=== PATIENT | female | born 1965 | race Caucasian/White ===

== ENCOUNTER 2021-02-23 15:57 | Inpatient (IN) | payer MEDICARE, MEDICAID ==
[~2021-02-23 15:57] MED LIST: NO HOME MEDICATION; RISP1TAB; RISP2TAB12; ZYPR10TA; ZYPR15TA PO; ZYPR15TA3; ZYPR5TAB2 PO
[2021-02-23 17:15] LABS: HEMATOCRIT 41.6 % (36.0-47.0); HEMOGLOBIN 13.6 g/dl (12.0-15.5); MEAN CORPUSCULAR HEMOGLOBIN 30.6 pg (27.0-33.0); MEAN CORPUSCULAR HGB CONC 32.7 g/dl (32.0-36.5); MEAN CORPUSCULAR VOLUME 93.5 fl (80.0-96.0); PLATELET COUNT, AUTOMATED 337 10^3/uL (150-450); RED BLOOD COUNT 4.45 10^6/uL (4.00-5.40)
[2021-02-23 17:27] LABS: AMPHETAMINES LEVEL URINE NEGATIVE (NEGATIVE); BARBITURATES URINE NEGATIVE (NEGATIVE); BENZODIAZEPINES URINE NEGATIVE (NEGATIVE); CANNABINOIDS URINE NEGATIVE (NEGATIVE); COCAINE METABOLITE URINE NEGATIVE (NEGATIVE); METHADONE URINE NEGATIVE (NEGATIVE); OPIATES URINE NEGATIVE (NEGATIVE); PHENCYCLIDINE URINE NEGATIVE (NEGATIVE)
[2021-02-23 17:38] LABS: ACETAMINOPHEN LEVEL < 2.0 UG/ML (10.0-30.0); ALT/SGPT 30 U/L (12-78); BILIRUBIN,DIRECT < 0.1 MG/DL (0.0-0.2); BILIRUBIN,TOTAL 0.2 MG/DL (0.2-1.0); BLOOD UREA NITROGEN 12 MG/DL (7-18); CALCIUM LEVEL 9.4 MG/DL (8.5-10.1); CARBON DIOXIDE LEVEL 26 MEQ/L (21-32); CHLORIDE LEVEL 107 MEQ/L (98-107); ETHYL ALCOHOL (ETHANOL) < 0.003 % (0.000-0.010); GLOMERULAR FILTRATION RATE > 60.0 (>51); GLUCOSE, FASTING 102 MG/DL (70-100); POTASSIUM SERUM 4.2 MEQ/L (3.5-5.1); SALICYLATE LEVEL 3.6 MG/DL (5.0-30.0); SODIUM LEVEL 138 MEQ/L (136-145); TOTAL PROTEIN 7.3 GM/DL (6.4-8.2)
[2021-02-23 19:43] LABS: RSV AMPLIFICATION NEGATIVE (NEGATIVE)
[2021-02-24] MEDS ORDERED: MAALOX 30 ML SUSP *UDC PO PRN (02:40)
[2021-02-24] MEDS ORDERED: ACETAMINOPHEN TAB 650MG DOSE (2X325MG) PO PRN (02:40)
--- NOTE | 2021-02-24 04:16 | MHIPNPDOC ---
[facility] Progress Note Progress Note DATE OF SERVICE: 02/24/21 Communicated with PSA patient is to be admitted. Police brought on 9.41, found psychotic, hx schizophrenia, last admission in 2012. Vital Signs Vital Signs Date Time Temp Pulse Resp B/P (MAP) Pulse Ox O2 Delivery O2 Flow Rate FiO2 02/23/21 17:23 97.9 85 20 155/76 (102) 98 Room Air Laboratory Data 24H Labs Laboratory Tests 2 02/23/21 16:10: Nucleated Red Blood Cells % (auto) 0.0, Anion Gap 5L, Glomerular Filtration Rate > 60.0, Calcium Level 9.4, Total Bilirubin 0.2, Direct Bilirubin < 0.1, As partate Amino Transf (AST/SGOT) 25, Alanine Aminotransferase (ALT/SGPT) 30, Alkaline Phosphatase 77, Total Protein 7.3, Albumin 4.0, Albumin/Globulin Ratio 1.2, Thyroid Stimulating Hormone (TSH) 1.180, Salicylates Level 3.6L, Urine Opiates Screen NEGATIVE, Urine Methadone Screen NEGATIVE, Acetaminophen Level < 2.0L, Urine Barbiturates Screen NEGATIVE, Urine Phencyclidine Screen NEGATIVE, Urine Amphetamines Screen NEGATIVE, Urine Benzodiazepines Screen NEGATIVE, Urine Cocaine Metabolite Screen NEGATIVE, Urine Cannabinoids Screen NEGATIVE, Ethyl Alcohol Level < 0.003 02/23/21 18:43: Coronavirus (COVID-19)(PCR) NEGATIVE, Influenza Type A (RT-PCR) NEGATIVE, Influenza Type B (RT-PCR) NEGATIVE, Respiratory Syncytial Virus (PCR) NEGATIVE CBC/BMP Laboratory Tests 02/23/21 16:10 Current Medications Current Medications Medications (Trade) Dose Ordered Sig/Kimani Route PRN Reason Start Time Stop Time Status Last Admin Dose Admin Acetaminophen (Tylenol Tab) 650 mg Q6HP PRN PO HEADACHE or MILD DISCOMFORT 02/24/21 02:40 Al Hydrox/Mg Hydrox/Simethicone (Mylanta) 30 ml Q4HP PRN PO HEARTBURN/INDIGESTION 02/24/21 02:40 Magnesium Hydroxide (Milk Of Magnesia) 30 ml DAILYPRN PRN PO CONSTIPATION 02/24/21 02:40 Olanzapine (ZyPREXA) 5 mg Q6HP PRN PO Anxiety/agitation 02/24/21 02:40 Trazodone HCl (Desyrel) 50 mg QHSP PRN PO INSOMNIA 02/24/21 02:40 Allergies Coded Allergies: No Known Allergies (Verified Allergy, Unknown, 02/23/21) PRANAV BURRELL MD Feb 24, 2021 04:16
[2021-02-24] MEDS: OLANZapine 5 MG TAB PO PRN (05:01)
[2021-02-24] MEDS ORDERED: diphenhydrAMINE 50MG CAP PO STA (06:40)
[2021-02-24] MEDS ORDERED: LORazepam 2 MG TAB PO STA (06:40)
[2021-02-24] MEDS: NICOTINE 21MG/24HR 1 EA TRANSDERMAL TD SCH (09:00)
--- NOTE | 2021-02-24 13:50 | HPEPDOC ---
[facility] Medical History & Physical Date of Admission Feb 23, 2021 Date of Service: Feb 24, 2021 Other Provider Luis Garcia DO, hospitalist Attending Physician: PRANAV BURRELL MD History and Physical CHIEF COMPLAINT: Psychosis HISTORY OF PRESENT ILLNESS: Patient is a 55-year-old female who was brought to the emergency department by the police due to psychotic behavior. Patient has a history of schizophrenia and was last admitted into the inpatient mental health unit in 2012. Please refer to the psychiatrist history and physical examination for further detail as the patient would not discuss any details with myself. Patient did not complain of any medical complaints at this time. PAST MEDICAL HISTORY: 1. Schizophrenia. PAST SURGICAL HISTORY: 1. Tonsillectomy. SOCIAL HISTORY: Patient states that she smokes about a pack a day and will occasionally drink a lcohol. Patient denies any illicit drug use. FAMILY HISTORY: When asked what the patient's family history, patient states that there is no family history ALLERGIES: Please see below. REVIEW OF SYSTEMS: General: Patient denies fevers HEENT: Patient denies headaches Cardiovascular: Patient denies chest pain Respiratory: Patient denies shortness of breath, cough GI: Patient denies abdominal pain, nausea, vomiting, diarrhea : Patient denies increased frequency or pain with urination Extremities: Patient denies swelling or pain in extremities Neurological: Patient denies numbness or tingling in legs Skin: Patient denies any new rashes or lesions. Hematologic: Patient denies any easy bruising. Lymphatic: Patient denies any lumps lumps or bumps in neck, axilla, or groin HOME MEDICATIONS: Please see below. PHYSICAL EXAMINATION: Was performed with RALPH Travis present in the examination room as a ferruler VITAL SIGNS: Temperature 96.8, pulse 61, respiratory rate 18, blood pressure 122 /80, pulse oximetry 96% on room air. General: Alert and oriented female patient who was laying in her bed with her blankets over her head when I walked into her room. Patient had initially refused to come into the examination room but after speaking with her in her room, she agreed and was able to walk to the examination room without any difficulty. Patient did not appear to be in any acute distress. HEENT: Normocephalic, atraumatic, moist mucous membranes. Neck: No lymphadenopathy or thyromegaly Cardiac: Regular rate and rhythm, no murmurs, normal S1, normal S2 Pulm: Clear to auscultation bilaterally. No wheezes, rhonchi, rales Abd: Nondistended, nontender to palpation, normal bowel sounds Ext: No edema bilateral lower extremities Neuro: Patient was able to move all 4 extremities on command and reported equal sensation light touch in all 4 extremities. Skin: Skin of the head, neck, upper and lower extremities was examined did not show any evidence of rash or wounds. LABORATORY DATA: See below. IMAGING: No imaging has been performed MICROBIOLOGY: Please see below. ASSESSMENT: 55-year-old female who is in the inpatient mental health unit for treatment of psychosis secondary to schizophrenia. . PLAN: 1. Psychosis. Treatment will be per psychiatry. 2. Nicotine dependence: Patient can have nicotine patch if she desires this. Disposition: Patient can be discharged per psychiatry. Please reconsult hospitalist if the need arises. Thank you for this consultation Vital Signs Vital Signs Date Time Temp Pulse Resp B/P (MAP) Pulse Ox O2 Delivery O2 Flow Rate FiO2 02/24/21 12:33 Room Air 02/24/21 04:45 96.8 61 18 122/80 (94) 96 Laboratory Data Labs 24H Laboratory Tests 2 02/23/21 16:10: Nucleated Red Blood Cells % (auto) 0.0, Anion Gap 5L, Glomerular Filtration Rate > 60.0, Calcium Level 9.4, Total Bilirubin 0.2, Direct Bilirubin < 0.1, Aspartate Amino Transf (AST/SGOT) 25, Alanine Aminotransferase (ALT/SGPT) 30, Alkaline Phosphatase 77, Total Protein 7.3, Albumin 4.0, Albumin/Globulin Ratio 1.2, Thyroid Stimulating Hormone (TSH) 1.180, Salicylates Level 3.6L, Urine Opiates Screen NEGATIVE, Urine Methadone Screen NEGATIVE, Acetaminophen Level < 2.0L, Urine Barbiturates Screen NEGATIVE, Urine Phencyclidine Screen NEGATIVE, Urine Amphetamines Screen NEGATIVE, Urine Benzodiazepines Screen NEGATIVE, Urine Cocaine Metabolite Screen NEGATIVE, Urine Cannabinoids Screen NEGATIVE, Ethyl Alcohol Level < 0.003 02/23/21 18:43: Coronavirus (COVID-19)(PCR) NEGATIVE, Influenza Type A (RT-PCR) NEGATIVE, Influenza Type B (RT-PCR) NEGATIVE, Respiratory Syncytial Virus (PCR) NEGATIVE CBC/BMP Laboratory Tests 02/23/21 16:10 Home Medications Scheduled Olanzapine (Zyprexa) 5 Mg Tab, 5 MG PO QAM Olanzapine (Zyprexa) 15 Mg Tab, 15 MG PO QHS Allergies Coded Allergies: No Known Allergies (Verified Allergy, Unknown, 02/23/21) A-FIB/CHADSVASC A-FIB History Current/History of A-Fib/PAF?: No LUIS GARCIA DO Feb 24, 2021 13:50
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
[2021-02-24 16:08] VITALS: BP 140/70
[2021-02-24] MEDS: OLANZapine 10 MG TAB PO SCH (21:00)
[2021-02-25 06:16] VITALS: BP 101/59
[2021-02-25 07:28] LABS: HEMOGLOBIN A1c 5.7 %
[2021-02-25 07:39] LABS: CHOLESTEROL RISK RATIO 3.173 (<5)
[2021-02-25] MEDS: NICOTINE 21MG/24HR 1 EA TRANSDERMAL TD SCH (08:39)
[2021-02-25] MEDS: OLANZapine 5 MG TAB PO SCH (08:39)
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
[2021-02-25 16:14] VITALS: BP 120/67
[2021-02-25] MEDS: traZODone 50 MG TAB PO PRN (20:29)
[2021-02-25] MEDS: OLANZapine 10 MG TAB PO SCH (20:29)
[2021-02-26 06:12] VITALS: BP 117/65
[2021-02-26] MEDS: NICOTINE 21MG/24HR 1 EA TRANSDERMAL TD SCH (08:35)
[2021-02-26] MEDS: OLANZapine 5 MG TAB PO SCH (08:35)
[2021-02-26] MEDS: OLANZapine 5 MG TAB PO PRN (11:13)
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
[2021-02-26 16:44] VITALS: BP 110/69
[2021-02-26] MEDS: OLANZapine 10 MG TAB PO SCH (21:54)
[2021-02-26] MEDS: traZODone 50 MG TAB PO PRN (21:54)
[2021-02-27 06:25] VITALS: BP 126/74
[2021-02-27] MEDS: OLANZapine 5 MG TAB PO SCH (08:17)
[2021-02-27] MEDS: NICOTINE 21MG/24HR 1 EA TRANSDERMAL TD SCH (08:18)
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
[2021-02-27] MEDS: NICOTINE POLACRILEX 2 MG GUM PO PRN ×2 (14:13→21:19)
[2021-02-27 17:18] VITALS: BP 123/64
[2021-02-27] MEDS: OLANZapine 10 MG TAB PO SCH (21:18)
[2021-02-27] MEDS: traZODone 50 MG TAB PO PRN (21:18)
[2021-02-28 06:32] VITALS: BP 129/74
[2021-02-28] MEDS: OLANZapine 10 MG TAB PO SCH ×2 (08:26→20:24)
[2021-02-28] MEDS: NICOTINE POLACRILEX 2 MG GUM PO PRN ×3 (08:28→20:25)
[2021-02-28] MEDS: haloperidoL 5 MG TAB PO PRN ×2 (14:48→21:00)
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
[2021-02-28 18:02] VITALS: BP 101/64
[2021-02-28] MEDS: MOM 30ML SUSPENSION UDC PO PRN (18:37)
[2021-02-28] MEDS: traZODone 50 MG TAB PO PRN (21:01)
[2021-02-28] MEDS ORDERED: IBUPROFEN 600MG TAB PO PRN (21:20)
[2021-03-01] MEDS: OLANZapine 10 MG TAB PO SCH ×2 (08:40→20:07)
[2021-03-01] MEDS: NICOTINE POLACRILEX 2 MG GUM PO PRN ×3 (08:40→19:53)
[2021-03-01] MEDS: DIVALPROEX 250MG *ER* TAB PO SCH ×2 (09:00→20:07)
[2021-03-01] MEDS: MOM 30ML SUSPENSION UDC PO PRN (09:54)
[2021-03-01] MEDS: haloperidoL 5 MG TAB PO PRN (14:55)
[2021-03-02 06:07] VITALS: BP 131/65
[2021-03-02] MEDS: OLANZapine 10 MG TAB PO SCH ×2 (08:08→20:18)
[2021-03-02] MEDS: DIVALPROEX 250MG *ER* TAB PO SCH ×3 (09:00→20:18)
[2021-03-02] MEDS: NICOTINE POLACRILEX 2 MG GUM PO PRN ×2 (10:35→18:19)
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
[2021-03-02 18:25] VITALS: BP 121/60
[2021-03-03 06:38] VITALS: BP 106/67
[2021-03-03] MEDS: OLANZapine 10 MG TAB PO SCH ×2 (08:36→20:13)
[2021-03-03] MEDS: DIVALPROEX 250MG *ER* TAB PO SCH ×3 (08:36→20:14)
[2021-03-03] MEDS: NICOTINE POLACRILEX 2 MG GUM PO PRN ×2 (08:39→16:00)
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
[2021-03-03 18:43] VITALS: BP 112/65
[2021-03-04 06:35] VITALS: BP 113/61
[2021-03-04] MEDS: DIVALPROEX 250MG *ER* TAB PO SCH ×3 (08:15→22:02)
[2021-03-04] MEDS: OLANZapine 10 MG TAB PO SCH ×2 (08:15→20:58)
[2021-03-04] MEDS: NICOTINE POLACRILEX 2 MG GUM PO PRN ×3 (08:16→20:58)
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
[2021-03-04] MEDS: MOM 30ML SUSPENSION UDC PO PRN (14:36)
[2021-03-04] MEDS: haloperidoL 5 MG TAB PO PRN (15:23)
[2021-03-04 18:34] VITALS: BP 134/67
[2021-03-05 07:04] VITALS: BP 114/64
[2021-03-05] MEDS: OLANZapine 10 MG TAB PO SCH ×2 (08:21→20:44)
[2021-03-05] MEDS: NICOTINE POLACRILEX 2 MG GUM PO PRN ×3 (08:21→19:29)
[2021-03-05] MEDS: DIVALPROEX 250MG *ER* TAB PO SCH ×3 (08:21→20:44)
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
[2021-03-05 17:55] VITALS: BP 121/71
[2021-03-06 06:13] VITALS: BP 133/73
[2021-03-06] MEDS: DIVALPROEX 250MG *ER* TAB PO SCH (08:17)
[2021-03-06] MEDS: OLANZapine 10 MG TAB PO SCH (08:17)
[2021-03-06] MEDS: NICOTINE POLACRILEX 2 MG GUM PO PRN ×3 (10:01→20:22)
[2021-03-06] MEDS: haloperidoL 5 MG TAB PO PRN (10:43)
[2021-03-06] MEDS ORDERED: DIVALPROEX 250MG *ER* TAB PO SCH (11:10)
[2021-03-06] MEDS ORDERED: TUBERCULIN PPD 5 UNITS/0.1 ML ID ONE (13:00)
[2021-03-06] MEDS: MOM 30ML SUSPENSION UDC PO PRN (14:03)
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
[2021-03-06 16:22] VITALS: BP 112/73
[2021-03-06] MEDS: fluPHENAZine 5MG TABLET PO SCH (20:19)
[2021-03-06] MEDS: DIVALPROEX 500MG *ER* TAB PO SCH (20:19)
[2021-03-06] MEDS: BENZTROPINE 1 MG TAB PO SCH (20:19)
[2021-03-07 06:20] VITALS: BP 102/55
[2021-03-07] MEDS: BENZTROPINE 1 MG TAB PO SCH ×2 (08:31→20:15)
[2021-03-07] MEDS: DIVALPROEX 500MG *ER* TAB PO SCH ×2 (08:31→20:15)
[2021-03-07] MEDS: fluPHENAZine 5MG TABLET PO SCH ×2 (08:31→20:15)
[2021-03-07] MEDS: NICOTINE POLACRILEX 2 MG GUM PO PRN ×3 (08:33→21:07)
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
[2021-03-07] MEDS: haloperidoL 5 MG TAB PO PRN ×2 (10:54→20:16)
[2021-03-07] MEDS ORDERED: IBUP200C25 PO (14:23)
[2021-03-07] MEDS ORDERED: HOME MED LIST COMPLETE! XX SCH (14:25)
[2021-03-07 16:22] VITALS: BP 121/66
[2021-03-07] MEDS: traZODone 50 MG TAB PO PRN (20:15)
[2021-03-08] MEDS: BENZTROPINE 1 MG TAB PO SCH ×2 (08:41→20:50)
[2021-03-08] MEDS: DIVALPROEX 500MG *ER* TAB PO SCH ×2 (08:41→20:50)
[2021-03-08] MEDS: fluPHENAZine 5MG TABLET PO SCH ×2 (08:41→20:50)
[2021-03-08] MEDS: NICOTINE POLACRILEX 2 MG GUM PO PRN ×3 (08:51→18:46)
[2021-03-08] MEDS ORDERED: PPD DOCUMENTATION ENTRY MISC XX ONE (13:00)
--- NOTE | 2021-03-08 13:56 | MHIPNPDOC ---
[facility] Progress Note Progress Note DATE OF SERVICE: 03/08/21 HISTORY: Patient is a 55 -year-old , female, history of schizoaffective disorder(reportedly diagnosed in [facility] in 1988), 6 inpatient stays, who presents with the police on a 9.41, per chart review found psychotic in [facility], patient was apparently aggressive and fighting with the staff, was able to be redirected and brought home but was later found to be aggressive again at [facility] with similar behavior towards staff and customers in the store, was reportedly having delusions of being a psychiatrist and having the ability to smell covid- 19 on people per chart review. Was medically cleared and admitted 9.39 legal status. Upon arrival to the unit she was agitated and psychotic Interval: Patient was transitioned from olanzapine to fluphenazine today patient is no longer pressured, but continues to have disorganized thought process. Answers questions inappropriately with loose associations, when asked how she was doing today states she first started to have symptoms when she was younger. During conversation she is tangential and jumps from one topic to the next. Understands she is here for psychiatric treatment and is alert and oriented x3. Is interruptible, denies psychotic symptoms, despite his level disorganization on interview. Reports sleep is okay. Was seen eating normally in the social milieu. During conversation states she is doing better asked when she is leaving, was explained that she needs to be stabilized for longer term treatment. He was not aggressive on interview but reportedly per staff yells in the common area at times sporadically in context of frustration with the TV/programming. VITAL SIGNS: See below. NEW TEST RESULTS: None. CURRENT MEDICATIONS: See below. MENTAL STATUS EXAMINATION: General Appearance: Improved hygiene, casual clothing, short dyed blond hair, improved eye contact, appears stated age Build: thin Demeanor: Friendly, cooperative Eye Contact: Improved, no longer stares into space or has intense eye contact Activity: Normal Speech: Spontaneous, disorganized Mood: Euthymic Mood "I'm good" Affect: Disorganized, full, does not appear internally preoccupied Thought Process: Disorganized, loose associations and tangential at times Thought Content (Delusions): delusions Thought Content (Other): internal-stimuli, unable to elaborate Thought Content (Aggressive): none reported Perception (Hallucinations): none reported Perception (Other): none reported Cognition (Impairment of): attention/concentration Cognition(Intelligence Est.): borderline Oriented: Awake, Alert, Oriented times three Insight: poor Judgment: Poor Psychosis: Associations, Abstract Thinking, Psychotic Perceptions DIAGNOSES: 1. Schizoaffective disorder, bipolar type per history of chart review 2. Tobacco use disorder ASSESSMENT: Patient is less hypomanic per chart review and appears euthymic today without pressured speech and is interruptible, though has a disorganized thought process with loose associations. Denies medication side effects including recently started fluphenazine. Sleep is improving appetite is normal, has outbursts in the common area per treatment team. MANAGEMENT PLAN: Continue on current regimen of fluphenazine and Depakote. Aims score equals 0 today on evaluation. First part of C completed pending evaluation by second psychiatrist. Coordination with social work for possible transfer to [facility]-term treatment. TIME SPENT: 20 minutes. Vital Signs Vital Signs Date Time Temp Pulse Resp B/P (MAP) Pulse Ox O2 Delivery O2 Flow Rate FiO2 03/08/21 07:07 98.3 96 18 93 Room Air 03/07/21 16:22 121/66 (84) Current Medications Current Medications Medications (Trade) Dose Ordered Sig/Kimani Route PRN Reason Start Time Stop Time Status Last Admin Dose Admin Acetaminophen (Tylenol Tab) 650 mg Q6HP PRN PO HEADACHE or MILD DISCOMFORT 02/24/21 02:40 Cancel Al Hydrox/Mg Hydrox/Simethicone (Mylanta) 30 ml Q4HP PRN PO HEARTBURN/INDIGESTION 02/24/21 02:40 Benztropine Mesylate (Cogentin) 1 mg BID PO 03/06/21 21:00 03/08/21 08:41 Diphenhydramine HCl (Benadryl) 50 mg STAT STAT PO 02/24/21 06:40 02/24/21 06:41 DC 02/24/21 06:45 Divalproex Sodium (Depakote Er) 250 mg BID PO 03/01/21 09:00 03/03/21 11:28 DC 03/03/21 08:36 Divalproex Sodium (Depakote Er) 250 mg QID PO 03/06/21 11:10 03/06/21 11:43 DC 03/06/21 11:36 Divalproex Sodium (Depakote Er) 250 mg TID PO 03/03/21 16:00 03/06/21 10:48 DC 03/06/21 08:17 Divalproex Sodium (Depakote Er) 500 mg BID PO 03/06/21 21:00 03/08/21 08:41 Fluphenazine HCl (Prolixin) 5 mg BID PO 03/06/21 21:00 03/08/21 08:41 Haloperidol (Haldol) 5 mg Q6HP PRN PO AGITATION 02/26/21 11:35 03/07/21 20:16 Haloperidol (Haldol) 10 mg STAT STAT PO 02/24/21 06:40 02/24/21 06:41 DC 02/24/21 06:45 Home Med (Home Med List Complete!) ASDIRECTED XX 03/07/21 14:25 03/07/21 14:35 DC Ibuprofen (Advil) 600 mg Q6HP PRN PO MODERATE PAIN (PS 5-7) 02/28/21 21:20 02/28/21 21:39 Lorazepam (Ativan) 2 mg STAT STAT PO 02/24/21 06:40 02/24/21 06:41 DC 02/24/21 06:45 Magnesium Hydroxide (Milk Of Magnesia) 30 ml DAILYPRN PRN PO CONSTIPATION 02/24/21 02:40 03/06/21 14:03 Nicotine (Nicoderm Cq 21mg) 1 patch DAILY TD 02/24/21 09:00 02/27/21 14:04 DC 02/26/21 08:35 Nicotine (Nicorette) 2 mg Q4HP PRN PO NICOTINE WITHDRAWAL 02/27/21 14:05 03/08/21 12:55 Olanzapine (ZyPREXA) 5 mg Q6HP PRN PO Anxiety/agitation 02/24/21 02:40 02/26/21 11:35 DC 02/26/21 11:13 Olanzapine (ZyPREXA) 5 mg QAM PO 02/25/21 09:00 02/27/21 08:34 DC 02/27/21 08:17 Olanzapine (ZyPREXA) 10 mg BID PO 02/27/21 21:00 03/06/21 15:15 DC 03/06/21 08:17 Olanzapine (ZyPREXA) 10 mg QHS PO 02/24/21 21:00 02/27/21 08:34 DC 02/26/21 21:54 Trazodone HCl (Desyrel) 50 mg QHSP PRN PO INSOMNIA 02/24/21 02:40 03/07/21 20:15 Allergies Coded Allergies: No Known Allergies (Verified Allergy, Unknown, 02/23/21) PRANAV BURRELL MD Mar 08, 2021 13:56
[2021-03-08 16:20] VITALS: BP 112/62
[2021-03-08] MEDS: MOM 30ML SUSPENSION UDC PO PRN (18:12)
[2021-03-08] MEDS: haloperidoL 5 MG TAB PO PRN (20:50)
[2021-03-08] MEDS: traZODone 50 MG TAB PO PRN (20:50)
[2021-03-08] MEDS ORDERED: diphenhydrAMINE 50MG CAP PO ONE (21:40)
[2021-03-08] MEDS ORDERED: LORazepam 2 MG TAB PO ONE (21:40)
[2021-03-09 07:02] VITALS: BP 125/69
[2021-03-09] MEDS: NICOTINE POLACRILEX 2 MG GUM PO PRN ×2 (08:30→13:00)
[2021-03-09] MEDS: DIVALPROEX 500MG *ER* TAB PO SCH (08:30)
[2021-03-09] MEDS: fluPHENAZine 5MG TABLET PO SCH ×2 (08:30→20:13)
[2021-03-09] MEDS: BENZTROPINE 1 MG TAB PO SCH ×2 (08:30→20:13)
--- NOTE | 2021-03-09 14:55 | MHIPNPDOC ---
[facility] Progress Note Progress Note DATE OF SERVICE: 03/09/21 HISTORY: Patient is a 55 -year-old , female, history of schizoaffective disorder(reportedly diagnosed in [facility] in 1988), 6 inpatient stays, who presents with the police on a 9.41, per chart review found psychotic in [facility], patient was apparently aggressive and fighting with the staff, was able to be redirected and brought home but was later found to be aggressive again at [facility] with similar behavior towards staff and customers in the store, was reportedly having delusions of being a psychiatrist and having the ability to smell covid- 19 on people per chart review. Was medically cleared and admitted 9.39 legal status. Upon arrival to the unit she was agitated and psychotic Interval: Charts reviewed, overnight she required agitation medications including 10 mg of Haldol 2 mg lorazepam and 50 mg of diphenhydramine orally, which she accepted, reportedly per staff there are some other patients that had been teasing her, patient continues to be acutely disorganized. She is pleasant and friendly upon approach but has come conversation continues starts to discuss random tangential unrelated topics to conversation, answer questions that are not asked and become easily derailed. Today she called [facility] to have court hearing for retention. On discussion about continued stay she states she wants to be placed in inpatient unit in [place] to be closer to her daughter, on discussion it was made clear that there will be likely placement regionally. When asked about suicidal ideation again does not provide straightforward answers, discussing random topics that are unrelated to conversation, such as past events in her life. By the end of the conversation she asks "can you sign an order so that I can treat all the disabled woman of [facility]", as that is her goal. Reports tolerating medications without side effects, no acute physical complaints. VITAL SIGNS: See below. NEW TEST RESULTS: None CURRENT MEDICATIONS: See below. MENTAL STATUS EXAMINATION: General Appearance: Improved hygiene, casual clothing, short dyed blond hair, improved eye contact, appears stated age Build: thin Demeanor: Friendly, cooperative Eye Contact: Improved, no longer stares into space or has intense eye contact Activity: Normal Speech: Spontaneous, disorganized Mood: Euthymic Mood "I'm just fine" Affect: Disorganized, full, mood congruent. Thought Process: Disorganized, loose associations and tangential at times Thought Content (Delusions): delusions Thought Content (Other): internal-stimuli, unable to elaborate Thought Content (Aggressive): none reported Perception (Hallucinations): none reported Perception (Other): none reported Cognition (Impairment of): attention/concentration Cognition(Intelligence Est.): borderline Oriented: Awake, Alert, Oriented times three Insight: poor Judgment: Poor Psychosis: Associations, Abstract Thinking, Psychotic Perceptions DIAGNOSES: 1. Schizoaffective disorder, bipolar type per history of chart review 2. Tobacco use disorder ASSESSMENT: Patient continues to improve on the unit with regards to mood reportedly but has periods of agitation in context of stressor of other patients manipulative behavior towards her, nursing staff and team aware of this order to help with redirection and maintaining safety. Patient continues to be highly disorganized and delusional with regards to having grandiose delusions of being able to treat all the women in [facility]. MANAGEMENT PLAN: Continue on current regimen of fluphenazine and Depakote, Depakote was increased from 500 to 750 mg p.o. twice daily for stabilization of mood and possible manic symptoms. Plan to order another Depakote level in 2 to 5 days, ordered for 03/13/21. TIME SPENT: 25 minutes. Vital Signs Vital Signs Date Time Temp Pulse Resp B/P (MAP) Pulse Ox O2 Delivery O2 Flow Rate FiO2 03/09/21 07:02 97.7 80 18 125/69 (87) 97 Room Air Current Medications Current Medications Medications (Trade) Dose Ordered Sig/Kimani Route PRN Reason Start Time Stop Time Status Last Admin Dose Admin Acetaminophen (Tylenol Tab) 650 mg Q6HP PRN PO HEADACHE or MILD DISCOMFORT 02/24/21 02:40 Cancel Al Hydrox/Mg Hydrox/Simethicone (Mylanta) 30 ml Q4HP PRN PO HEARTBURN/INDIGESTION 02/24/21 02:40 Benztropine Mesylate (Cogentin) 1 mg BID PO 03/06/21 21:00 03/09/21 08:30 Diphenhydramine HCl (Benadryl) 50 mg STAT STAT PO 02/24/21 06:40 02/24/21 06:41 DC 02/24/21 06:45 Divalproex Sodium (Depakote Er) 250 mg BID PO 03/01/21 09:00 03/03/21 11:28 DC 03/03/21 08:36 Divalproex Sodium (Depakote Er) 250 mg QID PO 03/06/21 11:10 03/06/21 11:43 DC 03/06/21 11:36 Divalproex Sodium (Depakote Er) 250 mg TID PO 03/03/21 16:00 03/06/21 10:48 DC 03/06/21 08:17 Divalproex Sodium (Depakote Er) 500 mg BID PO 03/06/21 21:00 03/09/21 08:30 Fluphenazine HCl (Prolixin) 5 mg BID PO 03/06/21 21:00 03/09/21 08:30 Haloperidol (Haldol) 5 mg Q6HP PRN PO AGITATION 02/26/21 11:35 03/08/21 20:50 Haloperidol (Haldol) 10 mg STAT STAT PO 02/24/21 06:40 02/24/21 06:41 DC 02/24/21 06:45 Home Med (Home Med List Complete!) ASDIRECTED XX 03/07/21 14:25 03/07/21 14:35 DC Ibuprofen (Advil) 600 mg Q6HP PRN PO MODERATE PAIN (PS 5-7) 02/28/21 21:20 02/28/21 21:39 Lorazepam (Ativan) 2 mg STAT STAT PO 02/24/21 06:40 02/24/21 06:41 DC 02/24/21 06:45 Magnesium Hydroxide (Milk Of Magnesia) 30 ml DAILYPRN PRN PO CONSTIPATION 02/24/21 02:40 03/08/21 18:12 Nicotine (Nicoderm Cq 21mg) 1 patch DAILY TD 02/24/21 09:00 02/27/21 14:04 DC 02/26/21 08:35 Nicotine (Nicorette) 2 mg Q4HP PRN PO NICOTINE WITHDRAWAL 02/27/21 14:05 03/09/21 13:00 Olanzapine (ZyPREXA) 5 mg Q6HP PRN PO Anxiety/agitation 02/24/21 02:40 02/26/21 11:35 DC 02/26/21 11:13 Olanzapine (ZyPREXA) 5 mg QAM PO 02/25/21 09:00 02/27/21 08:34 DC 02/27/21 08:17 Olanzapine (ZyPREXA) 10 mg BID PO 02/27/21 21:00 03/06/21 15:15 DC 03/06/21 08:17 Olanzapine (ZyPREXA) 10 mg QHS PO 02/24/21 21:00 02/27/21 08:34 DC 02/26/21 21:54 Trazodone HCl (Desyrel) 50 mg QHSP PRN PO INSOMNIA 02/24/21 02:40 03/08/21 20:50 Allergies Coded Allergies: No Known Allergies (Verified Allergy, Unknown, 02/23/21) PRANAV BURRELL MD Mar 09, 2021 14:55
[2021-03-09 18:09] VITALS: BP 122/68
[2021-03-09] MEDS: DIVALPROEX 250MG *ER* TAB PO SCH (20:13)
[2021-03-09] MEDS: traZODone 50 MG TAB PO PRN (20:13)
[2021-03-09] MEDS: MOM 30ML SUSPENSION UDC PO PRN (21:23)
[2021-03-10 06:33] VITALS: BP 104/78
[2021-03-10] MEDS: fluPHENAZine 5MG TABLET PO SCH ×2 (08:05→20:27)
[2021-03-10] MEDS: DIVALPROEX 250MG *ER* TAB PO SCH ×2 (08:05→20:28)
[2021-03-10] MEDS: BENZTROPINE 1 MG TAB PO SCH ×2 (08:05→20:27)
[2021-03-10] MEDS: NICOTINE POLACRILEX 2 MG GUM PO PRN ×2 (08:57→15:19)
--- NOTE | 2021-03-10 13:57 | MHIPNPDOC ---
[facility] Progress Note Progress Note DATE OF SERVICE: 03/10/21 HISTORY: Patient is a 55 -year-old , female, history of schizoaffective disorder(reportedly diagnosed in [facility] in 1988), 6 inpatient stays, who presents with the police on a 9.41, per chart review found psychotic in [facility], patient was apparently aggressive and fighting with the staff, was able to be redirected and brought home but was later found to be aggressive again at [facility] with similar behavior towards staff and customers in the store, was reportedly having delusions of being a psychiatrist and having the ability to smell covid- 19 on people per chart review. Was medically cleared and admitted 9.39 legal status. Upon arrival to the unit she was agitated and psychotic. 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 VITAL SIGNS: See below. NEW TEST RESULTS: None CURRENT MEDICATIONS: See below. MENTAL STATUS EXAMINATION: General Appearance: Improved hygiene, casual clothing, short dyed blond hair, improved eye contact, appears stated age Build: thin Demeanor: Friendly, cooperative Eye Contact: Improved, no longer stares into space or has intense eye contact Activity: Normal Speech: Spontaneous, disorganized Mood: Hypomanic Mood "I'm just fine" Affect: Hypomanic, disorganized, full, mood congruent. Thought Process: Disorganized, loose associations and tangential at times Thought Content (Delusions): delusions Thought Content (Other): internal-stimuli, unable to elaborate Thought Content (Aggressive): none reported Perception (Hallucinations): none reported Perception (Other): none reported Cognition (Impairment of): attention/concentration Cognition(Intelligence Est.): borderline Oriented: Awake, Alert, Oriented times three Insight: poor Judgment: Poor Psychosis: Associations, Abstract Thinking, Psychotic Perceptions DIAGNOSES: 1. Schizoaffective disorder, bipolar type per history of chart review 2. Tobacco use disorder ASSESSMENT: Patient continues to have improved mood, not agitated, has some hypomanic presentation, tolerating meds without side effects or acute physical complaints. MANAGEMENT PLAN: Continue on current regimen of fluphenazine and continue Depakote at 750 mg p.o. twice daily for stabilization of mood and possible manic symptoms. Depakote level pending for 03/13/21. Will consider adjustment based on level, other medical considerations for acute stabilization patient requires continued hospitalization. TIME SPENT: 20 minutes. Vital Signs Vital Signs Date Time Temp Pulse Resp B/P (MAP) Pulse Ox O2 Delivery O2 Flow Rate FiO2 03/10/21 06:33 96.9 96 16 104/78 (87) 96 Room Air Current Medications Current Medications Medications (Trade) Dose Ordered Sig/Kimani Route PRN Reason Start Time Stop Time Status Last Admin Dose Admin Acetaminophen (Tylenol Tab) 650 mg Q6HP PRN PO HEADACHE or MILD DISCOMFORT 02/24/21 02:40 Cancel Al Hydrox/Mg Hydrox/Simethicone (Mylanta) 30 ml Q4HP PRN PO HEARTBURN/INDIGESTION 02/24/21 02:40 Benztropine Mesylate (Cogentin) 1 mg BID PO 03/06/21 21:00 03/10/21 08:05 Diphenhydramine HCl (Benadryl) 50 mg STAT STAT PO 02/24/21 06:40 02/24/21 06:41 DC 02/24/21 06:45 Divalproex Sodium (Depakote Er) 250 mg BID PO 03/01/21 09:00 03/03/21 11:28 DC 03/03/21 08:36 Divalproex Sodium (Depakote Er) 250 mg QID PO 03/06/21 11:10 03/06/21 11:43 DC 03/06/21 11:36 Divalproex Sodium (Depakote Er) 250 mg TID PO 03/03/21 16:00 03/06/21 10:48 DC 03/06/21 08:17 Divalproex Sodium (Depakote Er) 500 mg BID PO 03/06/21 21:00 03/09/21 14:54 DC 03/09/21 08:30 Divalproex Sodium (Depakote Er) 750 mg BID PO 03/09/21 21:00 03/10/21 08:05 Fluphenazine HCl (Prolixin) 5 mg BID PO 03/06/21 21:00 03/10/21 08:05 Haloperidol (Haldol) 5 mg Q6HP PRN PO AGITATION 02/26/21 11:35 03/08/21 20:50 Haloperidol (Haldol) 10 mg STAT STAT PO 02/24/21 06:40 02/24/21 06:41 DC 02/24/21 06:45 Home Med (Home Med List Complete!) ASDIRECTED XX 03/07/21 14:25 03/07/21 14:35 DC Ibuprofen (Advil) 600 mg Q6HP PRN PO MODERATE PAIN (PS 5-7) 02/28/21 21:20 02/28/21 21:39 Lorazepam (Ativan) 2 mg STAT STAT PO 02/24/21 06:40 02/24/21 06:41 DC 02/24/21 06:45 Magnesium Hydroxide (Milk Of Magnesia) 30 ml DAILYPRN PRN PO CONSTIPATION 02/24/21 02:40 03/09/21 21:23 Nicotine (Nicoderm Cq 21mg) 1 patch DAILY TD 02/24/21 09:00 02/27/21 14:04 DC 02/26/21 08:35 Nicotine (Nicorette) 2 mg Q4HP PRN PO NICOTINE WITHDRAWAL 02/27/21 14:05 03/10/21 08:57 Olanzapine (ZyPREXA) 5 mg Q6HP PRN PO Anxiety/agitation 02/24/21 02:40 02/26/21 11:35 DC 02/26/21 11:13 Olanzapine (ZyPREXA) 5 mg QAM PO 02/25/21 09:00 02/27/21 08:34 DC 02/27/21 08:17 Olanzapine (ZyPREXA) 10 mg BID PO 02/27/21 21:00 03/06/21 15:15 DC 03/06/21 08:17 Olanzapine (ZyPREXA) 10 mg QHS PO 02/24/21 21:00 02/27/21 08:34 DC 02/26/21 21:54 Trazodone HCl (Desyrel) 50 mg QHSP PRN PO INSOMNIA 02/24/21 02:40 03/09/21 20:13 Allergies Coded Allergies: No Known Allergies (Verified Allergy, Unknown, 02/23/21) PRANAV BURRELL MD Mar 10, 2021 13:57
[2021-03-10 16:40] VITALS: BP 112/75
[2021-03-10] MEDS: traZODone 50 MG TAB PO PRN (20:27)
[2021-03-11 06:12] VITALS: BP 113/71
[2021-03-11] MEDS: BENZTROPINE 1 MG TAB PO SCH ×2 (08:07→20:30)
[2021-03-11] MEDS: fluPHENAZine 5MG TABLET PO SCH ×2 (08:07→20:30)
[2021-03-11] MEDS: DIVALPROEX 250MG *ER* TAB PO SCH ×2 (08:07→20:30)
[2021-03-11] MEDS: NICOTINE POLACRILEX 2 MG GUM PO PRN ×2 (08:08→15:29)
[2021-03-11] MEDS: HYDROCORTISONE 2.5% 20GM OINTMENT TOP SCH ×2 (13:51→20:31)
--- NOTE | 2021-03-11 15:02 | IPNPDOC ---
Text Note Date of Service The patient was seen on 03/11/21. NOTE Subjective: Patient is a 55-year-old female who is in the inpatient mental health unit was been complaining of a rash on her hands for the past 2 days. Patient says that she has been washing her hands relentlessly every time she uses it pain. Patient was concerned that there was poison oak although the patient has been in the inpatient mental health unit for about 2 weeks so she has not been outside. Patient was concerned that the poison oak was coming from a plant that was in the group therapy room. Patient denies any other symptoms. Patient says the rash is itchy and is painful. Physical exam: Vitals: See below General: Alert and oriented female patient who was sitting in bed when I walked in. Patient is a stand up without any difficulty. Patient was in no acute distress. HEENT: Normocephalic, atraumatic, moist mucous membranes. Skin: Hands had xerosis on the palms and in the interdigital space with some redness around the areas with some cracks in the skin Labs: See below Imaging: No new imaging has been performed Assessment/plan: 55-year-old female with psychosis admitted into the inpatient mental health unit for further treatment who required reconsult for hand rash 1. Contact dermatitis. It appears that the patient has contact dermatitis or irritant dermatitis. Hydrocortisone ointment will be given to the patient for the next few days and I advised the patient to cover her hands in petroleum jelly especially at night and to try to avoid washing her hands as much she has been and if she does wash her hands to put a moisturizing cream on the hands and avoid anything with perfumes or dyes. Hospitalist can be reconsulted if the rash does not improve Disposition: Discharge per psychiatry VS,Pate, I+O VS, Pate, I+O Vital Signs Date Time Temp Pulse Resp B/P (MAP) Pulse Ox O2 Delivery O2 Flow Rate FiO2 03/11/21 06:12 97.4 96 16 113/71 (85) 93 Room Air JOSEMORIAH GUSTAFSON Mar 11, 2021 15:02
[2021-03-11 16:01] VITALS: BP 114/76
[2021-03-11] MEDS: MOM 30ML SUSPENSION UDC PO PRN (16:10)
[2021-03-11] MEDS: haloperidoL 5 MG TAB PO PRN (20:30)
[2021-03-11] MEDS: traZODone 50 MG TAB PO PRN (20:30)
[2021-03-12 06:47] VITALS: BP 139/73
[2021-03-12] MEDS: BENZTROPINE 1 MG TAB PO SCH ×2 (08:14→20:47)
[2021-03-12] MEDS: DIVALPROEX 250MG *ER* TAB PO SCH ×2 (08:14→20:47)
[2021-03-12] MEDS: NICOTINE POLACRILEX 2 MG GUM PO PRN ×3 (08:14→19:50)
[2021-03-12] MEDS: fluPHENAZine 5MG TABLET PO SCH ×2 (08:14→20:47)
[2021-03-12] MEDS: HYDROCORTISONE 2.5% 20GM OINTMENT TOP SCH ×2 (08:14→20:47)
[2021-03-12 16:20] VITALS: BP 113/60
[2021-03-12] MEDS: traZODone 50 MG TAB PO PRN (20:47)
[2021-03-12] MEDS: haloperidoL 5 MG TAB PO PRN (20:50)
[2021-03-13 07:05] VITALS: BP 130/75
[2021-03-13] MEDS: HYDROCORTISONE 2.5% 20GM OINTMENT TOP SCH ×2 (08:39→20:57)
[2021-03-13] MEDS: BENZTROPINE 1 MG TAB PO SCH ×2 (08:40→20:57)
[2021-03-13] MEDS: NICOTINE POLACRILEX 2 MG GUM PO PRN ×3 (08:40→18:54)
[2021-03-13] MEDS: fluPHENAZine 5MG TABLET PO SCH ×2 (08:40→20:57)
[2021-03-13] MEDS: DIVALPROEX 250MG *ER* TAB PO SCH ×2 (08:40→20:57)
--- NOTE | 2021-03-13 09:21 | MHIPNPDOC ---
[facility] Progress Note Progress Note DATE OF SERVICE: 03/13/21 HISTORY: Patient is a 55 -year-old , female, history of schizoaffective disorder(reportedly diagnosed in [facility] in 1988), 6 inpatient stays, who presents with the police on a 9.41, per chart review found psychotic in [facility], patient was apparently aggressive and fighting with the staff, was able to be redirected and brought home but was later found to be aggressive again at [facility] with similar behavior towards staff and customers in the store, was reportedly having delusions of being a psychiatrist and having the ability to smell covid- 19 on people per chart review. Was medically cleared and admitted 9.39 legal status. Upon arrival to the unit she was agitated and psychotic. Interval: Continues to be organized initially upon interview, pleasant and cooperative, but as conversation continues becomes derailed in her thought process. Has been responding well to medications, denies side effects or acute physical complaints. Seems to be happy walking the hallways and social milieu, going to groups. VITAL SIGNS: See below. NEW TEST RESULTS: Depakote level which was reordered it is 96.7 within normal limits CURRENT MEDICATIONS: See below. MENTAL STATUS EXAMINATION: General Appearance: Improved hygiene, casual clothing, short dyed blond hair, improved eye contact, appears stated age Build: thin Demeanor: Friendly, cooperative Eye Contact: Improved, no longer stares into space or has intense eye contact Activity: Normal Speech: Spontaneous, disorganized Mood: Hypomanic Mood "i'm good" Affect: Continues to be disorganized, mildly elevated, mood congruent. Thought Process: Disorganized, loose associations and tangential at times Thought Content (Delusions): delusions Thought Content (Other): internal-stimuli, unable to elaborate Thought Content (Aggressive): none reported Perception (Hallucinations): none reported Perception (Other): none reported Cognition (Impairment of): attention/concentration Cognition(Intelligence Est.): borderline Oriented: Awake, Alert, Oriented times three Insight: poor Judgment: Poor Psychosis: Associations, Abstract Thinking, Psychotic Perceptions DIAGNOSES: 1. Schizoaffective disorder, bipolar type per history of chart review 2. Tobacco use disorder ASSESSMENT: Patient continues to be disorganized, with mildly elevated mood, tolerating medications without side effects. Depakote level 03/13/2021 within normal limits. MANAGEMENT PLAN: Requires continued hospitalization for continued stabilization. Continue current medication regimen. TIME SPENT: 15 minutes. Vital Signs Vital Signs Date Time Temp Pulse Resp B/P (MAP) Pulse Ox O2 Delivery O2 Flow Rate FiO2 03/13/21 07:05 97.4 74 18 130/75 (93) 93 Room Air Laboratory Data 24H Labs Laboratory Tests 2 03/13/21 06:23: Valproic Acid (Depakene) Level 96.7 Current Medications Current Medications Medications (Trade) Dose Ordered Sig/Kimani Route PRN Reason Start Time Stop Time Status Last Admin Dose Admin Acetaminophen (Tylenol Tab) 650 mg Q6HP PRN PO HEADACHE or MILD DISCOMFORT 02/24/21 02:40 Cancel Al Hydrox/Mg Hydrox/Simethicone (Mylanta) 30 ml Q4HP PRN PO HEARTBURN/INDIGESTION 02/24/21 02:40 Benztropine Mesylate (Cogentin) 1 mg BID PO 03/06/21 21:00 03/13/21 08:40 Diphenhydramine HCl (Benadryl) 50 mg STAT STAT PO 02/24/21 06:40 02/24/21 06:41 DC 02/24/21 06:45 Divalproex Sodium (Depakote Er) 250 mg BID PO 03/01/21 09:00 03/03/21 11:28 DC 03/03/21 08:36 Divalproex Sodium (Depakote Er) 250 mg QID PO 03/06/21 11:10 03/06/21 11:43 DC 03/06/21 11:36 Divalproex Sodium (Depakote Er) 250 mg TID PO 03/03/21 16:00 03/06/21 10:48 DC 03/06/21 08:17 Divalproex Sodium (Depakote Er) 500 mg BID PO 03/06/21 21:00 03/09/21 14:54 DC 03/09/21 08:30 Divalproex Sodium (Depakote Er) 750 mg BID PO 03/09/21 21:00 03/13/21 08:40 Fluphenazine HCl (Prolixin) 5 mg BID PO 03/06/21 21:00 03/13/21 08:40 Haloperidol (Haldol) 5 mg Q6HP PRN PO AGITATION 02/26/21 11:35 03/12/21 20:50 Haloperidol (Haldol) 10 mg STAT STAT PO 02/24/21 06:40 02/24/21 06:41 DC 02/24/21 06:45 Home Med (Home Med List Complete!) ASDIRECTED XX 03/07/21 14:25 03/07/21 14:35 DC Hydrocortisone (Hydrocortisone 2.5% Ointment) 1 dose BID TOP 03/11/21 09:00 03/15/21 08:59 03/13/21 08:39 Ibuprofen (Advil) 600 mg Q6HP PRN PO MODERATE PAIN (PS 5-7) 02/28/21 21:20 02/28/21 21:39 Lorazepam (Ativan) 2 mg STAT STAT PO 02/24/21 06:40 02/24/21 06:41 DC 02/24/21 06:45 Magnesium Hydroxide (Milk Of Magnesia) 30 ml DAILYPRN PRN PO CONSTIPATION 02/24/21 02:40 03/11/21 16:10 Nicotine (Nicoderm Cq 21mg) 1 patch DAILY TD 02/24/21 09:00 02/27/21 14:04 DC 02/26/21 08:35 Nicotine (Nicorette) 2 mg Q4HP PRN PO NICOTINE WITHDRAWAL 02/27/21 14:05 03/13/21 08:40 Olanzapine (ZyPREXA) 5 mg Q6HP PRN PO Anxiety/agitation 02/24/21 02:40 02/26/21 11:35 DC 02/26/21 11:13 Olanzapine (ZyPREXA) 5 mg QAM PO 02/25/21 09:00 02/27/21 08:34 DC 02/27/21 08:17 Olanzapine (ZyPREXA) 10 mg BID PO 02/27/21 21:00 03/06/21 15:15 DC 03/06/21 08:17 Olanzapine (ZyPREXA) 10 mg QHS PO 02/24/21 21:00 02/27/21 08:34 DC 02/26/21 21:54 Trazodone HCl (Desyrel) 50 mg QHSP PRN PO INSOMNIA 02/24/21 02:40 03/12/21 20:47 Allergies Coded Allergies: No Known Allergies (Verified Allergy, Unknown, 02/23/21) PRANAV BURRELL MD Mar 13, 2021 09:21
[2021-03-13] MEDS: haloperidoL 5 MG TAB PO PRN (09:32)
[2021-03-13 18:03] VITALS: BP 124/66
[2021-03-13 18:04] VITALS: BP 124/66
[2021-03-14 06:00] VITALS: BP 122/63
[2021-03-14] MEDS: fluPHENAZine 5MG TABLET PO SCH (08:04)
[2021-03-14] MEDS: DIVALPROEX 250MG *ER* TAB PO SCH (08:04)
[2021-03-14] MEDS: BENZTROPINE 1 MG TAB PO SCH (08:04)
[2021-03-14] MEDS: HYDROCORTISONE 2.5% 20GM OINTMENT TOP SCH (08:05)
[2021-03-14] MEDS ORDERED: HYDR25OIN TOP (11:46)
[2021-03-14] MEDS ORDERED: DEPA250T2 PO (11:46)
[2021-03-14] MEDS ORDERED: FLUP5TAB13 PO (11:46)
[2021-03-14] MEDS ORDERED: TRAZ-252 PO (11:46)
[2021-03-14] MEDS ORDERED: NICO2GUM PO (11:46)
[2021-03-14] MEDS ORDERED: BENZ-52 PO (11:46)
--- NOTE | 2021-03-14 14:37 | MHDSPDOC ---
[facility] Discharge Summary Discharge Summary DATE OF ADMISSION: Feb 24, 2021 at 02:36 DATE OF DISCHARGE: 03/14/21 Discharge diagnoses: 1. Schizoaffective disorder, bipolar type per history 2. Tobacco use disorder Reason for admission: Patient is a 55 -year-old , female, history of schizoaffective disorder(reportedly diagnosed in [facility] in 1988), 6 inpatient stays, who presents with the police on a 9.41, per chart review found psychotic in [facility], patient was apparently aggressive and fighting with the staff, was able to be redirected and brought home but was later found to be aggressive again at [facility] with similar behavior towards staff and customers in the store, was reportedly having delusions of being a psychiatrist and having the ability to smell covid-19 on people per chart review. Was medically cleared and admitted 9.39 legal status. Upon arrival to the unit she was agitated and psychotic. Vital signs: See below Consultants involved: See medical H&P by hospitalist Treatment and progress on the unit: Patient was admitted to the [facility] 9.39 legal status and was afforded the following treatment modalities: 1. Individual therapy 2. Group therapy 3. Medication management 4. Milieu therapy 5. Safe environment Hospital course: Patient was admitted to the [facility] on a 9.39 legal status. Was medically cleared prior to coming up to the [facility]. Upon arrival was disorganized and was started on Depakote 750 mg which was titrated up to 750 twice a day for mood stabilization, was also started on fluphenazine 5 mg twice daily. Was initially very disorganized with loose associations, easily derailment and bizarre behaviors and thought process. Over the course of the week mood stabilized and was less labile, was more engaged in interview and less derailed on conversation, per staff is at baseline and she denied suicidal or homicidal ideations, feels ready to return home. Patient found medications beneficial and tolerated them well. Reports mood and anxiety symptoms are improved and intrusive thoughts which improved with treatment. Patient attended groups daily during stay. Patient symptoms improved with treatment. On day of discharge patient denied depression, anxiety, insomnia, suicidal or homicidal ideations intent or plan, hallucinations, delusions. Patient was discharged home with follow-up. Patient felt safe for discharge. Was offered continued stay involuntary admission but refused. Discharge assessment: On today's interview patient is alert and oriented, dressed appropriately. Hygiene and grooming is well-kept. Smiles on approach and is pleasant and engaged on interview. Denies depression and anxiety. Denies suicidal homicidal ideation, intent or planning. Denies and is not observed with sobia or psychotic symptoms of delusions, hallucinations, bizarre thinking, obsessions, paranoia, ruminations, illogical thoughts, flight of ideas or having poor insight or judgment. Patient has normal mentation, declines further hospitalization of voluntary status and meets criteria for discharge today, patient encouraged to return the hospital if symptoms worsen or change and encouraged to call unit if they feel they need provider's questions to be answered or help with medications or care. Mental status: General Appearance: Improved hygiene, poor dentition, casual clothing, short dyed blond hair, improved eye contact, appears stated age Build: thin Demeanor: Friendly, cooperative Eye Contact: Improved, no longer stares into space or has intense eye contact Activity: Normal Speech: Spontaneous, disorganized Mood " great" Affect: Per chart review, and discussion with patient is more organized, euthymic, appropriate, mood congruent Thought Process: Disorganized, loose associations and tangential at times Thought Content (Delusions): delusions Thought Content (Other): internal-stimuli, unable to elaborate Thought Content (Aggressive): none reported Perception (Hallucinations): none reported Perception (Other): none reported Cognition (Impairment of): attention/concentration Cognition(Intelligence Est.): borderline Oriented: Awake, Alert, Oriented times three Insight: Limited Judgment: Improved Psychosis: Associations, Abstract Thinking, Psychotic Perceptions Medications on discharge: see medication reconciliation: CSSRS on discharge: Wish to be : No nonspecific active suicidal thoughts: No lifetime attempts: 0 interrupted attempts: 0 aborted attempts: 0 preparatory acts or behavior: None Taking into consideration safety state, status, modifiable, non-modifiable risk factors patient is at low risk on discharge for suicide according to [place] suicide evaluation. Follow-up appointments: Follow Up Care Education Label * [facility]t [facility] * Established With This Provider No NEW PATIENT * Therapist FLORIAN * Date Mar 21, 2021 * Time 15:00 * Address of Clinic or Practice [address] [place] [address] * Follow Up Care Education Label * Mental Health Appt 2 * [facility] * Established With This Provider No NEW PATIENT * Therapist MILTON * Date Apr 12, 2021 * Time 10:00 * Address of Clinic or Practice [address] [facility] [facility] * Follow Up Care Education Label * Medical * Medical Follow Up [facility] * Established With This Provider No NEW PATIENT * Additional information WILL CONTACT PATIENT WITH APPOINTMENT DATE AND TIME. total time: 35 minutes ETOH/Disorder Med Rx ETOH/DRUG DISORDER RX: Offrd @ d/c & pt refused Vital Signs/I&Os Vital Signs Date Time Temp Pulse Resp B/P (MAP) Pulse Ox O2 Delivery O2 Flow Rate FiO2 03/14/21 06:00 97.8 79 18 122/63 (82) 95 03/13/21 07:05 Room Air Medications Scheduled Benztropine Mesylate (Benztropine Mesylate) 1 Mg Tablet, 1 MG PO BIDP for eps, #14 Divalproex Sodium (Depakote ER) 250 Mg Tab.er.24h, 750 MG PO BID for mood stabilization, #42 Fluphenazine HCl (Fluphenazine HCl) 5 Mg Tablet, 5 MG PO BID for psychosis, #14 Hydrocortisone (Hydrocortisone 2.5%) 20 Gm Oint...g., 1 DOSE TOP BID for rash, #2 Scheduled PRN Nicotine Polacrilex (Nicotine Gum) 2 Mg Gum, 2 MG PO Q4HP PRN for NICOTINE WITHDRAWAL, #14 Trazodone HCl (Trazodone HCl) 50 Mg Tablet, 50 MG PO QHSP PRN for INSOMNIA, #7 Allergies Coded Allergies: No Known Allergies (Verified Allergy, Unknown, 02/23/21) PRANAV BURRELL MD Mar 14, 2021 14:37
== END 2021-03-14 14:57 | disposition home or self-care (01) | DRG 885 ==
LOC: M ED 15:57 → M ED INP 02-24 02:36 → M PSY 02-24 04:58
PROVIDERS: ADMIT Student in an Organized Health Care Education/Training Program; ATTEND Student in an Organized Health Care Education/Training Program
DX: F25.0 Schizoaffective disorder, bipolar type (principal); F17.210 Nicotine dependence, cigarettes, uncomplicated; Z79.899 Other long term (current) drug therapy; Z20.822 Contact with and (suspected) exposure to COVID-19; Z91.14 Patient's other noncompliance with medication regimen; Z90.49 Acquired absence of other specified parts of digestive tract; Z63.8 Other specified problems related to primary support group